=== PATIENT | male | born 1950 | race Caucasian/White ===

== ENCOUNTER 2024-02-16 09:06 | Emergency (ER) | payer MEDICARE, BC ==
[2024-02-16] MEDS ORDERED: Acetaminophen 500 MG Tab PO ONE (10:03)
== END 2024-02-16 10:36 | disposition home or self-care (01) ==
LOC: DL.ED 09:06
DX: S09.90XA Unspecified injury of head, initial encounter (principal); S00.03XA Contusion of scalp, initial encounter; W18.2XXA Fall in (into) shower or empty bathtub, initial encounter; Y93.E1 Activity, personal bathing and showering; Y92.002 Bathroom of unspecified non-institutional (private) residence as the place of occurrence of the external cause
CPT/HCPCS: 70450; 72125; 93010; 99284